=== PATIENT | male | born 1950 | race Caucasian/White ===

== ENCOUNTER 2017-07-15 14:28 | Outpatient (CLI) | payer OTHER ==
[~2017-07-15] VITALS: Ht 165.1 cm; Wt 81.8 kg
[2017-07-15] MEDS ORDERED: GABA300C16 PO (15:21)
[2017-07-15] MEDS ORDERED: LISI20TA11 PO (15:21)
[2017-07-15] MEDS ORDERED: LEVO25TA53 PO (15:21)
[2017-07-15] MEDS ORDERED: METF500T4 PO (15:21)
[2017-07-15] MEDS ORDERED: GLIP5TAB13 PO (15:21)
[2017-07-15 15:22] VITALS: BP 136/64; PULSE 82; RESP 18; Ht 165.1 cm; Wt 81.8 kg
--- NOTE | 2017-07-15 15:42 | PN ---
Date/Time of Note Date/Time of Note DATE: 07/15/17 TIME: 15:36 Outpatient Progress Note Chief Complaint hematuria/diabetes/hypertension/urinary retention/neuropathy/cataract/ hypothyroidism HPI Hematuria/patient was recently admitted with hematuria and sepsis at [place] , and patient was transferred to for season, patient doing better, patient still has a Rosen catheter, no fever chill, no suprapubic discomfort or distention, Diabetes/no polydipsia polyuria hypoglycemia, patient has diabetes, patient on medication, patient blood sugar under control, Hypertension/no headache or dizziness, no redness, Urinary retention/patient had urinary retention, no history of any hydronephrosis, no history of any kidney stone, patient has a Rosen catheter, Neuropathy/patient has neuropathy, especially in the right leg, patient still has tingling numbness, going on for 2 years, Hypothyroidism/patient has history of hypothyroidism, no puffiness of eyes, Cataract/patient has impaired vision bilaterally, has a cataract, Review of Systems Const: No Fever, no chills, no Wt. loss, no Fatigue, normal appetite, no diaphoresis. Eyes: No pain, no discharge, no redness, impaired vision bilaterally, secondary to cataract, patient was going for surgery soon, no foreign body. ENT: No pain, no bleeding, no congestion, no sore throat, no dysphagia, no discharge or rhinitis. Lymph: No adenopathy, no tender nodes, no lymphedema. Resp: No SOB, no cough, no sputum, no wheezing, no chest pain. CV: No chest pain, no palpitaions, no CHAVEZ, no PND, no edema. GI: Normal appetite, no pain, no nausea, no vomiting, no diarrhea, no blood, no constipation. : No frequency, no urgency, no dysuria, patient had hematuria, patient has a Rosen catheter, no flank pain, no discharge, patient has a Musc: Slight lower back pain, no neck pain, no knee pain, no restricted ROM. Skin: No rash, no skin lesions, no erythema, no laceration, no bruising, no pruritus. Neuro: No PICHARDO, no dizziness, no syncope, no seizure, no focal-weakness. Right thigh numbness, Endo: No polyuria, no polydypsia, no dry-skin, no temp-intolerance. Psych: No hallucinations, no depression, no anxiety, no suicidal ideation. Ext: No edema, no pain, no ulcer, no weakness. Physical Exam Vital Signs Date Time Temp Pulse Resp B/P Pulse Ox O2 Delivery O2 Flow Rate FiO2 07/15/17 15:22 98.3 82 18 136/64 98 Room Air General Appearance: A 66 year-old male who appears well-developed, well- nourished, in no acute distress. HEENT: Head normocephalic, atraumatic. Pupils equal, round, reactive to light and accommodate. Impaired vision bilaterally secondary to cataract, sclerae are no jaundice. Nasal turbinates pink without erythema or nasal discharge. Mucous membranes pink and moist without lesions. Oropharynx clear without any exudate or discharge. NECK: Supple. Trachea midline, No thyromegaly, No cervical lymphadenopathy, No mass, No carotid bruits, No JVD, Carotid pulses 2+ bilaterally. PULMONARY: Clear to auscultaion bilaterally, No retractions, Chest expansion symmetric bilaterally, no rales, no ronchi, no dulness on percussion. CARDIAC: Normal SI and S2, Regular rate and rythm, no murmur, gallop, or rub. GASTROINTESTINAL: Abdomen is soft, non-tender, Non Rigid, No distention, Positive bowel sounds x4 quadrants, Liver normal. SKIN: Warm, dry, no rash, no bruise, no echmosis neuropathy pain right thigh,. EXTREMITIES: Bilateral lower extremities no edema, no phlabitus, pulse palpable , no contracture. MUSCULOSKELETAL: Spine Normal, Non-tender, Normal range of motion, No swelling, no deformity, no clubbing, or cyanosis, the patient has no edema to bilateral lower extremities, dorsalis pedis pulses palpable bilaterally. NEUROLOGIC: The patient is awake, alert, oriented, responding to yes/no questions appropriately, moving all extremities, cranial nerve intact, normal strenght, normal power, normal coordination, normal gait. Allergies Coded Allergies: No Known Drug Allergies (Verified Allergy, Unknown, 07/15/17) PMH Diabetes/hypertension/urinary retention/hematuria/sepsis/neuropathy/cataract bilateral probably BPH Social Hx Patient does not smoke, patient drinks beer, sometimes too many per patient, Family Hx Noncontributory Assessment/Plan Impression Hematuria/diabetes/hypertension/urinary retention/neuropathy/bilateral cataract/ possible BPH/hypothyroidism Plan Patient education done about multiple disease, explained, to follow with the urologist, follow with the primary care physician on regular basis, at present I do not have any record of the hospital, or [facility], We will try to get urologist to change the Rosen catheter, Patient has all his medication, will continue to monitor for sepsis, continue all medication, control the blood sugar, control the blood pressure, Patient encouraged to follow with the primary care physician, and urologist, Patient education done not to drink any beer or any alcohol, We will try to get medical record from hospital or [facility], Medications Home Meds Reported Medications Gabapentin* (Gabapentin*) 300 Mg Capsule, 600 MG PO DAILY, #180 CAP 07/15/17 Metformin Hcl* (Metformin Hcl*) 500 Mg Tablet, 500 MG PO WITH BREAKFAST, #30 TAB 07/15/17 Lisinopril* (Lisinopril*) 20 Mg Tablet, 20 MG PO DAILY, #30 TAB 07/15/17 Glipizide* (Glipizide*) 5 Mg Tablet, 5 MG PO DAILY, TAB 07/15/17 Levothyroxine Sodium* (Levothyroxine Sodium*) 25 Mcg Tablet, 25 MCG PO BEFORE BREAKFAST, #30 TAB 07/15/17 WILLEM JAMES MD Jul 15, 2017 15:42
== END 2017-07-15 17:00 | disposition home or self-care (01) ==
LOC: DCC 14:28
PROVIDERS: ATTEND Internal Medicine
DX: R31.9 Hematuria, unspecified (principal); E11.9 Type 2 diabetes mellitus without complications; I10 Essential (primary) hypertension; R33.9 Retention of urine, unspecified; G62.9 Polyneuropathy, unspecified; E03.9 Hypothyroidism, unspecified; H26.9 Unspecified cataract
CPT/HCPCS: G0463